=== PATIENT | male | born 1960 | race Caucasian/White ===

== ENCOUNTER 2020-07-18 18:52 | Inpatient (IN) ==
[2020-07-18] MEDS ORDERED: SODIUM CHLORIDE 0.9% 1,000 ML IV STA (19:27)
[2020-07-18 19:53] LABS: Basophils # 0.1 10*3/uL (0.0-0.2); Basophils % 0.4 % (0.0-0.8); Eosinophils % 0.2 % (0.00-10.9); Hematocrit 43.7 VOL% (42.0-52.0); Hemoglobin 14.7 GM/DL (14.0-18.0); Immature Granulocytes Absolute 0.18 #; Lymphocytes # 0.7 10*3/uL (1.4-4.0); Lymphocytes % 3.8 % (21.2-54.2); Mean Corpuscular HGB Conc 33.6 GM/DL (32-36); Mean Corpuscular Volume 93.4 FL (87-102); Monocytes % 3.8 % (1.7-12.7); Neutrophils % 90.8 % (38.7-73.9); Platelet Count 149 T/CUMM (130-400); Red Blood Count 4.68 MC/CUMM (3.8-5.5); Red Cell Distribution Width 14.8 % (9.3-17.3); White Blood Count 18.9 T/CUMM (4-12)
[2020-07-18 20:05] LABS: INR 1.2; PT Patient Result 12.3 SECS (9.8-11.9)
[2020-07-18 20:07] LABS: ABG Base Excess -1.1 MMOL/L (-2.5-2.5); ABG HCO3 21.5 MMOL/L (20-26); ABG Oxygen Saturation 91.7 % (95-100); ABG PCO2 30.4 MM HG (35-48); ABG PH 7.468 (7.35-7.45); ABG PO2 60.1 MM HG (80-95); ABG TCO2 22.5 MMOL/L (23-27)
[2020-07-18 20:20] LABS: Band Neutrophils 18 % (0-10); Lymphocytes 3 % (20-55); Metamyelocytes 1 %; Segmented Neutrophils 72 % (50-85); Total Cells Counted 100
[2020-07-18 20:21] LABS: Hypochromasia 1+; Platelet Estimate Adequate
[2020-07-18 20:24] LABS: Albumin 2.3 G/DL (3.4-5.0); Bilirubin,Total 0.8 MG/DL (0.2-1.0); Osmolality,Calculated 252.6 MOS/KG (273-304); Potassium 4.6 MMOL/L (3.5-5.1); Total Protein 5.9 G/DL (6.4-8.3)
[2020-07-18 20:41] LABS: Ferritin 1866.9 ng/ml (26-388)
[2020-07-18] MEDS ORDERED: MELATONIN 3 MG TABLET PO PRN (21:17)
[2020-07-18] MEDS ORDERED: GLUCAGON 1 MG VIAL IM PRN (21:17)
[2020-07-18] MEDS ORDERED: ACETAMINOPHEN 325 MG TABLET PO PRN (21:17)
[2020-07-18] MEDS ORDERED: DEXTROSE 50% 25 GM/50 ML VIAL IV PRN (21:17)
[2020-07-18] MEDS ORDERED: ONDANSETRON 4 MG/2 ML VIAL IV PRN (21:17)
[2020-07-18] MEDS ORDERED: MAGNESIUM SULF RIDER 2 GM in PREMIX 1 EACH IV ONE (21:20)
[2020-07-18] MEDS ORDERED: methylPREDNISolone SOD SUC 125 MG/2 ML VIAL IV STA (21:21)
[2020-07-18] MEDS: cefTRIAXone 1,000 MG in SYRINGE 1 EACH IV SCH (21:27)
[2020-07-18] MEDS ORDERED: ENOXAPARIN 40 MG/0.4 ML SYRINGE SUBCUT SCH (21:30)
[2020-07-18] MEDS: ASCORBIC ACID 500 MG TABLET PO SCH (22:00)
[2020-07-18] MEDS: FAMOTIDINE 20 MG TABLET PO SCH (22:00)
[2020-07-18] MEDS: AZITHROMYCIN INJ 500 MG in SODIUM CHLORIDE 0.9% 250 ML IV SCH (22:00)
[2020-07-18] MEDS: SODIUM CHLORIDE 0.9% 1,000 ML IV SCH (22:00)
[2020-07-18] MEDS ORDERED: LORazepam 1 MG TABLET PO PRN (23:04)
[2020-07-19] MEDS: ALBUTEROL INHALER 18 GM INH SCH ×4 (00:58→20:22)
[2020-07-19 05:51] LABS: Basophils # 0.1 10*3/uL (0.0-0.2); Basophils % 0.4 % (0.0-0.8); Hematocrit 42.6 VOL% (42.0-52.0); Hemoglobin 14.7 GM/DL (14.0-18.0); Immature Granulocytes % 0.5 %; Immature Granulocytes Absolute 0.07 #; Lymphocytes # 0.4 10*3/uL (1.4-4.0); Mean Corpuscular HGB Conc 34.5 GM/DL (32-36); Mean Corpuscular Volume 92.2 FL (87-102); Mean Platelet Volume 11.3 FL (9.6-12.0); Monocytes % 2.5 % (1.7-12.7); Neutrophils % 93.6 % (38.7-73.9); Platelet Count 132 T/CUMM (130-400); Red Blood Count 4.62 MC/CUMM (3.8-5.5); Red Cell Distribution Width 14.9 % (9.3-17.3); White Blood Count 14.1 T/CUMM (4-12)
[2020-07-19 06:22] LABS: Ferritin 2460.1 ng/ml (26-388)
[2020-07-19 06:43] LABS: Albumin 1.9 G/DL (3.4-5.0); Band Neutrophils 19 % (0-10); Calcium 8.5 MG/DL (8.5-10.1); Lymphocytes 2 % (20-55); Metamyelocytes 2 %; Osmolality,Calculated 256.4 MOS/KG (273-304); Potassium 4.1 MMOL/L (3.5-5.1); Segmented Neutrophils 74 % (50-85); Total Cells Counted 100; Total Protein 6.4 G/DL (6.4-8.3)
[2020-07-19 06:44] LABS: Hypochromasia 1+; Microcytosis 1+
[2020-07-19 06:45] LABS: Platelet Estimate Adequate
[2020-07-19] MEDS ORDERED: DEXAMETHASONE 4 MG/1 ML VIAL IV SCH (09:00)
[2020-07-19] MEDS: ZINC GLUCONATE 50 MG TABLET PO SCH (09:07)
[2020-07-19] MEDS: FOLIC ACID 1 MG TABLET PO SCH (09:07)
[2020-07-19] MEDS: FAMOTIDINE 20 MG TABLET PO SCH ×2 (09:07→20:23)
[2020-07-19] MEDS: CETIRIZINE 10 MG TABLET PO SCH (09:07)
[2020-07-19] MEDS: ASCORBIC ACID 500 MG TABLET PO SCH ×2 (09:07→20:23)
[2020-07-19] MEDS: CHOLECALCIFEROL 1,000 UNIT TABLET PO SCH (09:07)
[2020-07-19] MEDS: MULTIVITAMIN (CENTRUM) TABLET PO SCH (09:08)
[2020-07-19] MEDS: THIAMINE 100 MG TABLET PO SCH (09:08)
[2020-07-19] MEDS: SODIUM CHLORIDE 0.9% 1,000 ML IV SCH (09:09)
[2020-07-19] MEDS ORDERED: methylPREDNISolone SOD SUC 40 MG/1 ML VIAL IV SCH (09:30)
[2020-07-19] MEDS: ENOXAPARIN 40 MG/0.4 ML SYRINGE SUBCUT SCH ×2 (10:07→20:35)
[2020-07-19] MEDS ORDERED: REMDESIVIR 200 MG in SODIUM CHLORIDE 0.9% 210 ML IV ONE (11:00)
[2020-07-19] MEDS ORDERED: LORazepam 2 MG/1 ML VIAL IV ONE ×2 (13:15→14:38)
[2020-07-19] MEDS ORDERED: LORazepam 2 MG/1 ML VIAL ONE (13:16)
[2020-07-19] MEDS ORDERED: BENZONATATE 100 MG CAPSULE PO PRN (13:42)
[2020-07-19] MEDS ORDERED: MORPHINE 4 MG/1 ML VIAL IV PRN (13:59)
[2020-07-19] MEDS ORDERED: FUROSEMIDE 40 MG/4 ML VIAL IV ONE (13:59)
[2020-07-19] MEDS: DEXAMETHASONE 10 MG/1 ML VIAL IV SCH (14:53)
[2020-07-19] MEDS ORDERED: ETOMIDATE 20 MG/10 ML VIAL IV ONE ×2 (15:17→15:51)
[2020-07-19] MEDS ORDERED: SUCCINYLCHOLINE 200 MG/10 ML VIAL ONE (15:18)
[2020-07-19] MEDS ORDERED: SUCCINYLCHOLINE 200 MG/10 ML VIAL IV ONE (15:52)
[2020-07-19] MEDS: chlordiazePOXIDE 10 MG CAPSULE PO SCH ×2 (16:13→20:22)
[2020-07-19 17:34] LABS: ABG Base Excess 0.2 MMOL/L (-2.5-2.5); ABG HCO3 24.4 MMOL/L (20-26); ABG Oxygen Saturation 90.4 % (95-100); ABG PCO2 51.6 MM HG (35-48); ABG TCO2 23.7 MMOL/L (23-27)
[2020-07-19] MEDS: AZITHROMYCIN INJ 500 MG in SODIUM CHLORIDE 0.9% 250 ML IV SCH (20:35)
[2020-07-19] MEDS: cefTRIAXone 1,000 MG in SYRINGE 1 EACH IV SCH (20:36)
[2020-07-20] MEDS: ALBUTEROL INHALER 18 GM INH SCH ×4 (00:40→20:20)
[2020-07-20 04:14] LABS: Amorphous Crystals,Urine Occasional /HPF (Few); RBC,Urine 317 /HPF (0-4); WBC,Urine 4 /HPF (0-6)
[2020-07-20 04:15] LABS: Bilirubin,Urine Negative (Negative); Blood, Urine Large mg/dL (Negative); Glucose,Urine (UA) Negative (Negative); Ketones,Urine Negative (Negative); Nitrite,Urine Negative (Negative); Protein,Urine 100 MG/DL; Urine Appearance Turbid (Clear); Urine Color Amber (Yellow); Urine Urobilinogen 0.2 EU/DL (0.2-1.0)
[2020-07-20 04:23] LABS: ABG Base Excess 1.2 MMOL/L (-2.5-2.5); ABG HCO3 25.5 MMOL/L (20-26); ABG Oxygen Saturation 99.3 % (95-100); ABG PCO2 40.6 MM HG (35-48); ABG PH 7.412 (7.35-7.45); ABG TCO2 21.9 MMOL/L (23-27); Allen Test Positive; Pt O2 Delivery Device Ventilator
[2020-07-20 04:28] LABS: Basophils % 0.2 % (0.0-0.8); Hematocrit 38.4 VOL% (42.0-52.0); Immature Granulocytes % 1.3 %; Immature Granulocytes Absolute 0.17 #; Lymphocytes # 0.5 10*3/uL (1.4-4.0); Lymphocytes % 3.6 % (21.2-54.2); Mean Corpuscular HGB Conc 33.9 GM/DL (32-36); Mean Corpuscular Volume 94.1 FL (87-102); Mean Platelet Volume 11.5 FL (9.6-12.0); Monocytes % 3.4 % (1.7-12.7); Neutrophils % 91.5 % (38.7-73.9); Platelet Count 148 T/CUMM (130-400); Red Blood Count 4.08 MC/CUMM (3.8-5.5); Red Cell Distribution Width 14.8 % (9.3-17.3); White Blood Count 13.2 T/CUMM (4-12)
[2020-07-20 04:59] LABS: Band Neutrophils 10 % (0-10); Lymphocytes 2 % (20-55); Microcytosis 1+; Platelet Estimate Adequate; Segmented Neutrophils 85 % (50-85); Total Cells Counted 100
[2020-07-20 05:00] LABS: Hypochromasia 1+
[2020-07-20 05:02] LABS: Calcium 8.2 MG/DL (8.5-10.1); Ferritin 4286.9 ng/ml (26-388); Osmolality,Calculated 261.2 MOS/KG (273-304); Potassium 3.9 MMOL/L (3.5-5.1)
[2020-07-20] MEDS ORDERED: SUCCINYLCHOLINE 200 MG/10 ML VIAL ONE (07:20)
[2020-07-20] MEDS ORDERED: SUCCINYLCHOLINE 200 MG/10 ML VIAL IV ONE (07:21)
[2020-07-20] MEDS ORDERED: MIDAZOLAM 100 MG in SODIUM CHLORIDE 0.9% 80 ML IV PRN (07:30)
[2020-07-20] MEDS: fentaNYL INJ 1,250 MCG in SODIUM CHLORIDE 0.9% 225 ML IV PRN ×3 (08:45→21:25)
[2020-07-20] MEDS: CETIRIZINE 10 MG TABLET PO SCH (09:04)
[2020-07-20] MEDS: CHOLECALCIFEROL 1,000 UNIT TABLET PO SCH (09:04)
[2020-07-20] MEDS: chlordiazePOXIDE 10 MG CAPSULE PO SCH (09:04)
[2020-07-20] MEDS: THIAMINE 100 MG TABLET PO SCH (09:05)
[2020-07-20] MEDS: FAMOTIDINE 20 MG TABLET PO SCH ×2 (09:05→21:09)
[2020-07-20] MEDS: MULTIVITAMIN (CENTRUM) TABLET PO SCH (09:05)
[2020-07-20] MEDS: ASCORBIC ACID 500 MG TABLET PO SCH ×2 (09:05→21:10)
[2020-07-20] MEDS: ZINC GLUCONATE 50 MG TABLET PO SCH (09:05)
[2020-07-20] MEDS: FOLIC ACID 1 MG TABLET PO SCH (09:05)
[2020-07-20] MEDS: LEVOTHYROXINE 150 MCG TABLET PO SCH (09:05)
[2020-07-20] MEDS: DEXAMETHASONE 10 MG/1 ML VIAL IV SCH (09:06)
[2020-07-20] MEDS: amLODIPine 5 MG TABLET PO SCH (09:06)
[2020-07-20] MEDS: ENOXAPARIN 40 MG/0.4 ML SYRINGE SUBCUT SCH (09:06)
[2020-07-20] MEDS: REMDESIVIR 100 MG in SODIUM CHLORIDE 0.9% 100 ML IV SCH (10:13)
[2020-07-20] MEDS: PIPERACILLIN/TAZOBACTAM 3,375 MG in SODIUM CHLORIDE 0.9% 100 ML IV SCH ×2 (11:13→17:27)
[2020-07-20] MEDS: INSULIN REGULAR 100 UNIT/ML SUBCUT SCH ×2 (11:45→18:03)
[2020-07-20] MEDS: ENOXAPARIN 80 MG/0.8 ML SYRINGE SUBCUT SCH (21:09)
[2020-07-20] MEDS: AZITHROMYCIN 250 MG TABLET PO SCH (21:10)
[2020-07-21] MEDS: PIPERACILLIN/TAZOBACTAM 3,375 MG in SODIUM CHLORIDE 0.9% 100 ML IV SCH ×4 (00:50→23:43)
[2020-07-21] MEDS: fentaNYL INJ 1,250 MCG in SODIUM CHLORIDE 0.9% 225 ML IV PRN ×5 (00:52→23:42)
[2020-07-21] MEDS: ALBUTEROL INHALER 18 GM INH SCH ×4 (01:26→20:20)
[2020-07-21] MEDS: INSULIN REGULAR 100 UNIT/ML SUBCUT SCH ×4 (01:26→18:33)
[2020-07-21 04:21] LABS: Allen Test Positive; Pt O2 Delivery Device Ventilator
[2020-07-21 04:23] LABS: ABG Base Excess -2.1 MMOL/L (-2.5-2.5); ABG Oxygen Saturation 98.8 % (95-100); ABG PCO2 40.7 MM HG (35-48); ABG PO2 176.1 MM HG (80-95); ABG TCO2 24.2 MMOL/L (23-27)
[2020-07-21 04:35] LABS: Basophils % 0.2 % (0.0-0.8); Hematocrit 35.4 VOL% (42.0-52.0); Hemoglobin 12.5 GM/DL (14.0-18.0); Immature Granulocytes % 1.2 %; Immature Granulocytes Absolute 0.13 #; Lymphocytes # 0.6 10*3/uL (1.4-4.0); Lymphocytes % 5.2 % (21.2-54.2); Mean Corpuscular HGB Conc 35.3 GM/DL (32-36); Mean Corpuscular Volume 94.7 FL (87-102); Mean Platelet Volume 11.8 FL (9.6-12.0); Monocytes % 5.9 % (1.7-12.7); Neutrophils % 87.5 % (38.7-73.9); Platelet Count 154 T/CUMM (130-400); Red Blood Count 3.74 MC/CUMM (3.8-5.5); Red Cell Distribution Width 15.1 % (9.3-17.3); White Blood Count 11.2 T/CUMM (4-12)
[2020-07-21 06:04] LABS: Albumin 1.7 G/DL (3.4-5.0); Bilirubin,Total 0.9 MG/DL (0.2-1.0); Calcium 7.5 MG/DL (8.5-10.1); Osmolality,Calculated 284.5 MOS/KG (273-304); Potassium 4.1 MMOL/L (3.5-5.1)
[2020-07-21] MEDS ORDERED: SODIUM CHLORIDE 0.9% 500 ML IV ONE ×2 (06:37→08:30)
[2020-07-21] MEDS ORDERED: NOREPINEPHRINE 8 MG in SODIUM CHLORIDE 0.9% 242 ML IV PRN (06:37)
[2020-07-21 07:55] LABS: Band Neutrophils 11 % (0-10); Lymphocytes 3 % (20-55); Metamyelocytes 2 %; Segmented Neutrophils 84 % (50-85); Total Cells Counted 100
[2020-07-21 07:56] LABS: Hypochromasia Slight; Microcytosis 1+; Tear Drop Cells Few
[2020-07-21 07:57] LABS: Platelet Estimate Adequate
[2020-07-21] MEDS: ENOXAPARIN 80 MG/0.8 ML SYRINGE SUBCUT SCH ×2 (08:00→20:28)
[2020-07-21] MEDS: DEXAMETHASONE 10 MG/1 ML VIAL IV SCH (08:00)
[2020-07-21] MEDS: THIAMINE 100 MG TABLET PO SCH (08:01)
[2020-07-21] MEDS: CETIRIZINE 10 MG TABLET PO SCH (08:01)
[2020-07-21] MEDS: ZINC GLUCONATE 50 MG TABLET PO SCH (08:01)
[2020-07-21] MEDS: FAMOTIDINE 20 MG TABLET PO SCH ×2 (08:01→20:28)
[2020-07-21] MEDS: ASCORBIC ACID 500 MG TABLET PO SCH ×2 (08:01→20:28)
[2020-07-21] MEDS: CHOLECALCIFEROL 1,000 UNIT TABLET PO SCH (08:01)
[2020-07-21] MEDS: FOLIC ACID 1 MG TABLET PO SCH (08:01)
[2020-07-21] MEDS: MULTIVITAMIN (CENTRUM) TABLET PO SCH (08:01)
[2020-07-21] MEDS: LEVOTHYROXINE 150 MCG TABLET PO SCH (08:01)
[2020-07-21] MEDS: REMDESIVIR 100 MG in SODIUM CHLORIDE 0.9% 100 ML IV SCH (09:56)
[2020-07-21] MEDS: POLYETHYLENE GLYCOL POWDER 17 GM PACK PO SCH (10:04)
[2020-07-21] MEDS: AZITHROMYCIN 250 MG TABLET PO SCH (20:28)
[2020-07-22] MEDS: INSULIN REGULAR 100 UNIT/ML SUBCUT SCH ×4 (00:27→18:28)
[2020-07-22] MEDS: ALBUTEROL INHALER 18 GM INH SCH ×4 (02:52→20:30)
[2020-07-22 03:10] LABS: ABG Base Excess -2.7 MMOL/L (-2.5-2.5); ABG HCO3 22.8 MMOL/L (20-26); ABG Oxygen Saturation 97.8 % (95-100); ABG PCO2 42.1 MM HG (35-48); ABG PH 7.351 (7.35-7.45); ABG PO2 114.1 MM HG (80-95); ABG TCO2 24.1 MMOL/L (23-27); Allen Test Positive; Pt O2 Delivery Device Ventilator
[2020-07-22] MEDS: fentaNYL INJ 1,250 MCG in SODIUM CHLORIDE 0.9% 225 ML IV PRN ×6 (03:31→23:30)
[2020-07-22 04:23] LABS: Basophils % 0.2 % (0.0-0.8); Eosinophils # 0.1 10*3/uL (0.0-0.87); Eosinophils % 0.5 % (0.00-10.9); Hematocrit 35.8 VOL% (42.0-52.0); Hemoglobin 12.4 GM/DL (14.0-18.0); Immature Granulocytes % 1.8 %; Immature Granulocytes Absolute 0.18 #; Lymphocytes % 9.8 % (21.2-54.2); Mean Corpuscular HGB Conc 34.6 GM/DL (32-36); Monocytes % 6.4 % (1.7-12.7); Neutrophils % 81.3 % (38.7-73.9); Platelet Count 179 T/CUMM (130-400); Red Blood Count 3.77 MC/CUMM (3.8-5.5); Red Cell Distribution Width 15.5 % (9.3-17.3); White Blood Count 10.3 T/CUMM (4-12)
[2020-07-22 04:40] LABS: Calcium 7.8 MG/DL (8.5-10.1); Potassium 3.7 MMOL/L (3.5-5.1)
[2020-07-22 04:46] LABS: Hypochromasia Slight
[2020-07-22 04:47] LABS: Microcytosis Slight; Tear Drop Cells Slight
[2020-07-22] MEDS: DEXAMETHASONE 10 MG/1 ML VIAL IV SCH (08:16)
[2020-07-22] MEDS: ENOXAPARIN 80 MG/0.8 ML SYRINGE SUBCUT SCH ×2 (08:18→21:11)
[2020-07-22] MEDS: FOLIC ACID 1 MG TABLET PO SCH (08:18)
[2020-07-22] MEDS: MULTIVITAMIN (CENTRUM) TABLET PO SCH (08:18)
[2020-07-22] MEDS: LEVOTHYROXINE 150 MCG TABLET PO SCH (08:18)
[2020-07-22] MEDS: CHOLECALCIFEROL 1,000 UNIT TABLET PO SCH (08:18)
[2020-07-22] MEDS: ASCORBIC ACID 500 MG TABLET PO SCH ×2 (08:18→21:12)
[2020-07-22] MEDS: POLYETHYLENE GLYCOL POWDER 17 GM PACK PO SCH (08:18)
[2020-07-22] MEDS: THIAMINE 100 MG TABLET PO SCH (08:19)
[2020-07-22] MEDS: ZINC GLUCONATE 50 MG TABLET PO SCH (08:19)
[2020-07-22] MEDS: CETIRIZINE 10 MG TABLET PO SCH (08:19)
[2020-07-22] MEDS: FAMOTIDINE 20 MG TABLET PO SCH ×2 (08:19→21:12)
[2020-07-22] MEDS: PIPERACILLIN/TAZOBACTAM 3,375 MG in SODIUM CHLORIDE 0.9% 100 ML IV SCH ×2 (08:28→16:25)
[2020-07-22] MEDS: REMDESIVIR 100 MG in SODIUM CHLORIDE 0.9% 100 ML IV SCH (10:42)
[2020-07-22] MEDS: AZITHROMYCIN 250 MG TABLET PO SCH (21:12)
[2020-07-23] MEDS: INSULIN REGULAR 100 UNIT/ML SUBCUT SCH ×5 (00:08→23:03)
[2020-07-23] MEDS: PIPERACILLIN/TAZOBACTAM 3,375 MG in SODIUM CHLORIDE 0.9% 100 ML IV SCH ×4 (01:25→23:03)
[2020-07-23] MEDS: ALBUTEROL INHALER 18 GM INH SCH ×4 (03:00→18:58)
[2020-07-23] MEDS: fentaNYL INJ 1,250 MCG in SODIUM CHLORIDE 0.9% 225 ML IV PRN ×4 (04:05→15:40)
[2020-07-23 04:13] LABS: ABG Base Excess -1.9 MMOL/L (-2.5-2.5); ABG HCO3 22.8 MMOL/L (20-26); ABG Oxygen Saturation 98.9 % (95-100); ABG PCO2 39.5 MM HG (35-48); ABG PH 7.374 (7.35-7.45); ABG TCO2 20.5 MMOL/L (23-27)
[2020-07-23 06:35] LABS: Basophils % 0.3 % (0.0-0.8); Eosinophils # 0.3 10*3/uL (0.0-0.87); Eosinophils % 2.9 % (0.00-10.9); Hematocrit 34.7 VOL% (42.0-52.0); Hemoglobin 11.9 GM/DL (14.0-18.0); Immature Granulocytes % 4.8 %; Immature Granulocytes Absolute 0.56 #; Lymphocytes # 1.5 10*3/uL (1.4-4.0); Lymphocytes % 12.4 % (21.2-54.2); Mean Corpuscular HGB Conc 34.3 GM/DL (32-36); Mean Corpuscular Volume 94.6 FL (87-102); Mean Platelet Volume 11.8 FL (9.6-12.0); Monocytes % 6.4 % (1.7-12.7); Neutrophils % 73.2 % (38.7-73.9); Platelet Count 193 T/CUMM (130-400); Red Blood Count 3.67 MC/CUMM (3.8-5.5); Red Cell Distribution Width 15.9 % (9.3-17.3); White Blood Count 11.7 T/CUMM (4-12)
[2020-07-23 06:53] LABS: Calcium 7.7 MG/DL (8.5-10.1); Osmolality,Calculated 299.4 MOS/KG (273-304); Potassium 3.8 MMOL/L (3.5-5.1)
[2020-07-23 08:09] LABS: Band Neutrophils 8 % (0-10); Eosinophils 6 % (0-10); Lymphocytes 7 % (20-55); Metamyelocytes 2 %; Segmented Neutrophils 72 % (50-85); Total Cells Counted 100
[2020-07-23 08:10] LABS: Hypochromasia 1+
[2020-07-23 08:11] LABS: Microcytosis 1+
[2020-07-23] MEDS: ZINC GLUCONATE 50 MG TABLET PO SCH (09:41)
[2020-07-23] MEDS: LEVOTHYROXINE 150 MCG TABLET PO SCH (09:42)
[2020-07-23] MEDS: CHOLECALCIFEROL 1,000 UNIT TABLET PO SCH (09:42)
[2020-07-23] MEDS: THIAMINE 100 MG TABLET PO SCH (09:42)
[2020-07-23] MEDS: FOLIC ACID 1 MG TABLET PO SCH (09:42)
[2020-07-23] MEDS: MULTIVITAMIN (CENTRUM) TABLET PO SCH (09:43)
[2020-07-23] MEDS: CETIRIZINE 10 MG TABLET PO SCH (09:43)
[2020-07-23] MEDS: ASCORBIC ACID 500 MG TABLET PO SCH ×2 (09:43→22:30)
[2020-07-23] MEDS: DEXAMETHASONE 10 MG/1 ML VIAL IV SCH (09:44)
[2020-07-23] MEDS: POLYETHYLENE GLYCOL POWDER 17 GM PACK PO SCH (09:44)
[2020-07-23] MEDS: ENOXAPARIN 80 MG/0.8 ML SYRINGE SUBCUT SCH ×2 (09:44→22:30)
[2020-07-23] MEDS: FAMOTIDINE 20 MG TABLET PO SCH ×2 (09:45→22:30)
[2020-07-23] MEDS: REMDESIVIR 100 MG in SODIUM CHLORIDE 0.9% 100 ML IV SCH (09:45)
[2020-07-23] MEDS: fentaNYL INJ 2,500 MCG in SODIUM CHLORIDE 0.9% 450 ML IV PRN (19:38)
[2020-07-24] MEDS: ALBUTEROL INHALER 18 GM INH SCH ×4 (01:51→18:30)
[2020-07-24] MEDS: fentaNYL INJ 2,500 MCG in SODIUM CHLORIDE 0.9% 450 ML IV PRN ×3 (03:55→19:00)
[2020-07-24 05:40] LABS: Basophils # 0.1 10*3/uL (0.0-0.2); Basophils % 0.4 % (0.0-0.8); Eosinophils # 0.4 10*3/uL (0.0-0.87); Eosinophils % 3.1 % (0.00-10.9); Hematocrit 36.8 VOL% (42.0-52.0); Hemoglobin 12.4 GM/DL (14.0-18.0); Immature Granulocytes % 7.4 %; Immature Granulocytes Absolute 0.99 #; Lymphocytes # 1.6 10*3/uL (1.4-4.0); Lymphocytes % 11.9 % (21.2-54.2); Mean Corpuscular HGB Conc 33.7 GM/DL (32-36); Mean Corpuscular Volume 96.1 FL (87-102); Mean Platelet Volume 11.6 FL (9.6-12.0); Monocytes % 6.4 % (1.7-12.7); Neutrophils % 70.8 % (38.7-73.9); Platelet Count 220 T/CUMM (130-400); Red Blood Count 3.83 MC/CUMM (3.8-5.5); Red Cell Distribution Width 16.2 % (9.3-17.3); White Blood Count 13.4 T/CUMM (4-12)
[2020-07-24 05:54] LABS: ABG Base Excess -3.8 MMOL/L (-2.5-2.5); ABG HCO3 21.3 MMOL/L (20-26); ABG Oxygen Saturation 97.6 % (95-100); ABG PH 7.309 (7.35-7.45); ABG TCO2 20.3 MMOL/L (23-27); Allen Test Positive; Pt O2 Delivery Device Ventilator
[2020-07-24 06:09] LABS: Band Neutrophils 3 % (0-10); Eosinophils 3 % (0-10); Lymphocytes 13 % (20-55); Myelocytes 1 %; Segmented Neutrophils 74 % (50-85); Total Cells Counted 100
[2020-07-24 06:10] LABS: Atypical Lymphocytes Few; Platelet Estimate Normal
[2020-07-24 06:11] LABS: Ovalocytes 2+; Tear Drop Cells 2+
[2020-07-24 06:14] LABS: Calcium 8.2 MG/DL (8.5-10.1); Osmolality,Calculated 300.4 MOS/KG (273-304)
[2020-07-24] MEDS: INSULIN REGULAR 100 UNIT/ML SUBCUT SCH ×4 (06:18→17:20)
[2020-07-24 06:31] LABS: Ferritin 2832.3 ng/ml (26-388)
[2020-07-24] MEDS: PIPERACILLIN/TAZOBACTAM 3,375 MG in SODIUM CHLORIDE 0.9% 100 ML IV SCH ×2 (09:02→16:18)
[2020-07-24] MEDS: ASCORBIC ACID 500 MG TABLET PO SCH ×2 (09:03→20:21)
[2020-07-24] MEDS: CHOLECALCIFEROL 1,000 UNIT TABLET PO SCH (09:03)
[2020-07-24] MEDS: ZINC GLUCONATE 50 MG TABLET PO SCH (09:04)
[2020-07-24] MEDS: MULTIVITAMIN (CENTRUM) TABLET PO SCH (09:04)
[2020-07-24] MEDS: DEXAMETHASONE 10 MG/1 ML VIAL IV SCH (09:04)
[2020-07-24] MEDS: LEVOTHYROXINE 150 MCG TABLET PO SCH (09:04)
[2020-07-24] MEDS: FAMOTIDINE 20 MG TABLET PO SCH ×2 (09:04→20:22)
[2020-07-24] MEDS: ENOXAPARIN 80 MG/0.8 ML SYRINGE SUBCUT SCH ×2 (09:05→20:21)
[2020-07-24] MEDS: THIAMINE 100 MG TABLET PO SCH (09:05)
[2020-07-24] MEDS: CETIRIZINE 10 MG TABLET PO SCH (09:05)
[2020-07-24] MEDS: FOLIC ACID 1 MG TABLET PO SCH (09:05)
[2020-07-24] MEDS: POLYETHYLENE GLYCOL POWDER 17 GM PACK PO SCH (09:05)
[2020-07-24] MEDS: FUROSEMIDE 20 MG/2 ML VIAL IV SCH (16:17)
[2020-07-25] MEDS: INSULIN REGULAR 100 UNIT/ML SUBCUT SCH ×4 (01:09→18:12)
[2020-07-25] MEDS: PIPERACILLIN/TAZOBACTAM 3,375 MG in SODIUM CHLORIDE 0.9% 100 ML IV SCH ×3 (01:19→15:53)
[2020-07-25] MEDS: ALBUTEROL INHALER 18 GM INH SCH ×4 (01:46→18:12)
[2020-07-25] MEDS: fentaNYL INJ 2,500 MCG in SODIUM CHLORIDE 0.9% 450 ML IV PRN ×3 (02:03→20:11)
[2020-07-25 04:17] LABS: ABG Base Excess -2.9 MMOL/L (-2.5-2.5); ABG HCO3 20.4 MMOL/L (20-26); ABG Oxygen Saturation 98.3 % (95-100); ABG PCO2 31.3 MM HG (35-48); ABG PH 7.433 (7.35-7.45); ABG PO2 114.4 MM HG (80-95); ABG TCO2 21.4 MMOL/L (23-27); Allen Test Positive; Pt O2 Delivery Device Ventilator
[2020-07-25 04:52] LABS: Basophils % 0.2 % (0.0-0.8); Eosinophils # 0.4 10*3/uL (0.0-0.87); Hematocrit 34.9 VOL% (42.0-52.0); Hemoglobin 11.4 GM/DL (14.0-18.0); Immature Granulocytes % 7.1 %; Immature Granulocytes Absolute 1.05 #; Lymphocytes # 1.7 10*3/uL (1.4-4.0); Lymphocytes % 11.6 % (21.2-54.2); Mean Corpuscular HGB Conc 32.7 GM/DL (32-36); Mean Corpuscular Volume 97.5 FL (87-102); Mean Platelet Volume 11.6 FL (9.6-12.0); Monocytes % 6.3 % (1.7-12.7); Neutrophils % 71.8 % (38.7-73.9); Platelet Count 276 T/CUMM (130-400); Red Blood Count 3.58 MC/CUMM (3.8-5.5); Red Cell Distribution Width 16.2 % (9.3-17.3); White Blood Count 14.9 T/CUMM (4-12)
[2020-07-25 05:07] LABS: Albumin 1.6 G/DL (3.4-5.0); Bilirubin,Total 0.8 MG/DL (0.2-1.0); Calcium 8.5 MG/DL (8.5-10.1); Osmolality,Calculated 307.6 MOS/KG (273-304); Potassium 3.8 MMOL/L (3.5-5.1)
[2020-07-25 06:25] LABS: Anisocytosis 1+; Band Neutrophils 17 % (0-10); Eosinophils 7 % (0-10); Lymphocytes 7 % (20-55); Metamyelocytes 3 %; Myelocytes 2 %; Platelet Estimate Normal; Segmented Neutrophils 58 % (50-85); Smudge Cells Few; Total Cells Counted 100
[2020-07-25 06:26] LABS: Macrocytosis Slight; Poikilocytosis Slight; Spherocytes Few; Tear Drop Cells Few
[2020-07-25] MEDS: DEXAMETHASONE 10 MG/1 ML VIAL IV SCH (08:05)
[2020-07-25] MEDS: FUROSEMIDE 20 MG/2 ML VIAL IV SCH ×2 (08:08→15:50)
[2020-07-25] MEDS: ASCORBIC ACID 500 MG TABLET PO SCH ×2 (08:10→20:12)
[2020-07-25] MEDS: ENOXAPARIN 80 MG/0.8 ML SYRINGE SUBCUT SCH ×2 (08:10→20:11)
[2020-07-25] MEDS: THIAMINE 100 MG TABLET PO SCH (08:10)
[2020-07-25] MEDS: CHOLECALCIFEROL 1,000 UNIT TABLET PO SCH (08:11)
[2020-07-25] MEDS: LEVOTHYROXINE 150 MCG TABLET PO SCH (08:11)
[2020-07-25] MEDS: FAMOTIDINE 20 MG TABLET PO SCH ×2 (08:11→20:12)
[2020-07-25] MEDS: POLYETHYLENE GLYCOL POWDER 17 GM PACK PO SCH (08:11)
[2020-07-25] MEDS: ZINC GLUCONATE 50 MG TABLET PO SCH (08:11)
[2020-07-25] MEDS: CETIRIZINE 10 MG TABLET PO SCH (08:11)
[2020-07-25] MEDS: MULTIVITAMIN (CENTRUM) TABLET PO SCH (08:11)
[2020-07-25] MEDS: FOLIC ACID 1 MG TABLET PO SCH (08:11)
[2020-07-26] MEDS: INSULIN REGULAR 100 UNIT/ML SUBCUT SCH ×4 (01:01→18:10)
[2020-07-26] MEDS: ALBUTEROL INHALER 18 GM INH SCH ×4 (01:01→19:29)
[2020-07-26] MEDS: PIPERACILLIN/TAZOBACTAM 3,375 MG in SODIUM CHLORIDE 0.9% 100 ML IV SCH ×2 (01:50→08:07)
[2020-07-26] MEDS: fentaNYL INJ 2,500 MCG in SODIUM CHLORIDE 0.9% 450 ML IV PRN ×2 (03:06→11:19)
[2020-07-26 04:44] LABS: Allen Test Positive; Pt O2 Delivery Device Ventilator
[2020-07-26 04:58] LABS: ABG Base Excess -1.6 MMOL/L (-2.5-2.5); ABG HCO3 23.1 MMOL/L (20-26); ABG Oxygen Saturation 97.7 % (95-100); ABG PCO2 31.4 MM HG (35-48); ABG PH 7.445 (7.35-7.45); ABG TCO2 18.8 MMOL/L (23-27)
[2020-07-26 06:25] LABS: Basophils % 0.1 % (0.0-0.8); Eosinophils # 0.4 10*3/uL (0.0-0.87); Eosinophils % 2.6 % (0.00-10.9); Hematocrit 34.2 VOL% (42.0-52.0); Hemoglobin 11.2 GM/DL (14.0-18.0); Immature Granulocytes % 6.8 %; Immature Granulocytes Absolute 1.14 #; Lymphocytes # 1.8 10*3/uL (1.4-4.0); Lymphocytes % 10.6 % (21.2-54.2); Mean Corpuscular HGB Conc 32.7 GM/DL (32-36); Mean Corpuscular Volume 96.9 FL (87-102); Mean Platelet Volume 11.3 FL (9.6-12.0); Monocytes % 5.9 % (1.7-12.7); Platelet Count 312 T/CUMM (130-400); Red Blood Count 3.53 MC/CUMM (3.8-5.5); Red Cell Distribution Width 15.9 % (9.3-17.3); White Blood Count 16.7 T/CUMM (4-12)
[2020-07-26 07:01] LABS: Calcium 8.3 MG/DL (8.5-10.1); Osmolality,Calculated 304.8 MOS/KG (273-304); Potassium 3.5 MMOL/L (3.5-5.1)
[2020-07-26 07:03] LABS: Band Neutrophils 1 % (0-10); Eosinophils 2 % (0-10); Lymphocytes 8 % (20-55); Platelet Estimate Adequate; Segmented Neutrophils 85 % (50-85); Total Cells Counted 100
[2020-07-26] MEDS: ENOXAPARIN 80 MG/0.8 ML SYRINGE SUBCUT SCH ×2 (08:08→20:32)
[2020-07-26] MEDS: POLYETHYLENE GLYCOL POWDER 17 GM PACK PO SCH (08:08)
[2020-07-26] MEDS: ZINC GLUCONATE 50 MG TABLET PO SCH (08:09)
[2020-07-26] MEDS: LEVOTHYROXINE 150 MCG TABLET PO SCH (08:09)
[2020-07-26] MEDS: FUROSEMIDE 20 MG/2 ML VIAL IV SCH ×2 (08:09→17:10)
[2020-07-26] MEDS: MULTIVITAMIN (CENTRUM) TABLET PO SCH (08:09)
[2020-07-26] MEDS: CHOLECALCIFEROL 1,000 UNIT TABLET PO SCH (08:09)
[2020-07-26] MEDS: DEXAMETHASONE 10 MG/1 ML VIAL IV SCH (08:09)
[2020-07-26] MEDS: FOLIC ACID 1 MG TABLET PO SCH (08:09)
[2020-07-26] MEDS: ASCORBIC ACID 500 MG TABLET PO SCH ×2 (08:10→20:32)
[2020-07-26] MEDS: CETIRIZINE 10 MG TABLET PO SCH (08:10)
[2020-07-26] MEDS: THIAMINE 100 MG TABLET PO SCH (08:10)
[2020-07-26] MEDS: FAMOTIDINE 20 MG TABLET PO SCH ×2 (08:10→20:32)
[2020-07-26] MEDS: DESITIN 4OZ/NYSTATIN 15 GRAM MIXTURE PASTE TOP SCH ×2 (11:52→20:32)
[2020-07-26] MEDS: LEVOFLOXACIN INJ 750 MG in PREMIX 1 EACH IV SCH (11:57)
[2020-07-27] MEDS: ALBUTEROL INHALER 18 GM INH SCH ×4 (00:52→20:02)
[2020-07-27] MEDS: INSULIN REGULAR 100 UNIT/ML SUBCUT SCH ×4 (00:52→17:47)
[2020-07-27] MEDS: fentaNYL INJ 2,500 MCG in SODIUM CHLORIDE 0.9% 450 ML IV PRN ×4 (02:45→22:23)
[2020-07-27 04:48] LABS: ABG Base Excess -1.1 MMOL/L (-2.5-2.5); ABG HCO3 23.5 MMOL/L (20-26); ABG Oxygen Saturation 98.1 % (95-100); ABG PCO2 30.6 MM HG (35-48); ABG PH 7.461 (7.35-7.45); ABG TCO2 19.4 MMOL/L (23-27)
[2020-07-27 05:05] LABS: Basophils % 0.2 % (0.0-0.8); Eosinophils # 0.3 10*3/uL (0.0-0.87); Eosinophils % 1.9 % (0.00-10.9); Hematocrit 34.1 VOL% (42.0-52.0); Hemoglobin 11.1 GM/DL (14.0-18.0); Immature Granulocytes % 4.8 %; Immature Granulocytes Absolute 0.85 #; Lymphocytes # 1.7 10*3/uL (1.4-4.0); Lymphocytes % 9.6 % (21.2-54.2); Mean Corpuscular HGB Conc 32.6 GM/DL (32-36); Mean Corpuscular Volume 96.6 FL (87-102); Mean Platelet Volume 11.7 FL (9.6-12.0); Monocytes % 5.7 % (1.7-12.7); Neutrophils % 77.8 % (38.7-73.9); Platelet Count 287 T/CUMM (130-400); Red Blood Count 3.53 MC/CUMM (3.8-5.5); Red Cell Distribution Width 15.9 % (9.3-17.3); White Blood Count 17.9 T/CUMM (4-12)
[2020-07-27 05:33] LABS: Band Neutrophils 5 % (0-10); Eosinophils 1 % (0-10); Lymphocytes 6 % (20-55); Myelocytes 1 %; Segmented Neutrophils 85 % (50-85); Total Cells Counted 100
[2020-07-27 05:35] LABS: Hypochromasia 1+
[2020-07-27 05:36] LABS: Microcytosis 1+
[2020-07-27 06:25] LABS: Calcium 8.2 MG/DL (8.5-10.1); Osmolality,Calculated 294.3 MOS/KG (273-304); Potassium 3.3 MMOL/L (3.5-5.1)
[2020-07-27] MEDS ORDERED: MAGNESIUM SULF RIDER 2 GM in PREMIX 1 EACH IV ONE (08:48)
[2020-07-27] MEDS: POLYETHYLENE GLYCOL POWDER 17 GM PACK PO SCH (09:48)
[2020-07-27] MEDS: ENOXAPARIN 80 MG/0.8 ML SYRINGE SUBCUT SCH ×2 (09:49→19:59)
[2020-07-27] MEDS: LEVOTHYROXINE 150 MCG TABLET PO SCH (09:49)
[2020-07-27] MEDS: FUROSEMIDE 20 MG/2 ML VIAL IV SCH ×2 (09:49→17:00)
[2020-07-27] MEDS: DEXAMETHASONE 10 MG/1 ML VIAL IV SCH (09:49)
[2020-07-27] MEDS: THIAMINE 100 MG TABLET PO SCH (09:50)
[2020-07-27] MEDS: MULTIVITAMIN (CENTRUM) TABLET PO SCH (09:50)
[2020-07-27] MEDS: CHOLECALCIFEROL 1,000 UNIT TABLET PO SCH (09:50)
[2020-07-27] MEDS: ZINC GLUCONATE 50 MG TABLET PO SCH (09:50)
[2020-07-27] MEDS: CETIRIZINE 10 MG TABLET PO SCH (09:50)
[2020-07-27] MEDS: FOLIC ACID 1 MG TABLET PO SCH (09:50)
[2020-07-27] MEDS: ASCORBIC ACID 500 MG TABLET PO SCH ×2 (09:50→19:59)
[2020-07-27] MEDS: FAMOTIDINE 20 MG TABLET PO SCH ×2 (09:50→19:59)
[2020-07-27] MEDS: DESITIN 4OZ/NYSTATIN 15 GRAM MIXTURE PASTE TOP SCH ×2 (10:24→19:59)
[2020-07-27] MEDS: POTASSIUM CHLORIDE 20 MEQ/15 ML UDCUP PER TUBE PRN ×3 (10:55→18:00)
[2020-07-27] MEDS: LEVOFLOXACIN INJ 750 MG in PREMIX 1 EACH IV SCH (13:30)
[2020-07-28] MEDS: INSULIN REGULAR 100 UNIT/ML SUBCUT SCH ×4 (00:53→17:43)
[2020-07-28] MEDS: ALBUTEROL INHALER 18 GM INH SCH ×4 (02:12→18:21)
[2020-07-28 04:03] LABS: ABG Base Excess -1.7 MMOL/L (-2.5-2.5); ABG HCO3 22.5 MMOL/L (20-26); ABG Oxygen Saturation 97.5 % (95-100); ABG PH 7.413 (7.35-7.45); ABG PO2 104.3 MM HG (80-95); ABG TCO2 23.6 MMOL/L (23-27)
[2020-07-28 04:48] LABS: Basophils % 0.2 % (0.0-0.8); Eosinophils # 0.3 10*3/uL (0.0-0.87); Eosinophils % 1.6 % (0.00-10.9); Hematocrit 35.6 VOL% (42.0-52.0); Hemoglobin 11.4 GM/DL (14.0-18.0); Immature Granulocytes % 2.9 %; Immature Granulocytes Absolute 0.45 #; Lymphocytes # 1.7 10*3/uL (1.4-4.0); Mean Corpuscular Volume 99.7 FL (87-102); Mean Platelet Volume 12.3 FL (9.6-12.0); Monocytes % 6.2 % (1.7-12.7); Neutrophils % 78.1 % (38.7-73.9); Platelet Count 213 T/CUMM (130-400); Red Blood Count 3.57 MC/CUMM (3.8-5.5); Red Cell Distribution Width 15.7 % (9.3-17.3); White Blood Count 15.8 T/CUMM (4-12)
[2020-07-28 05:09] LABS: Calcium 8.4 MG/DL (8.5-10.1); Osmolality,Calculated 285.5 MOS/KG (273-304); Potassium 3.7 MMOL/L (3.5-5.1)
[2020-07-28] MEDS: fentaNYL INJ 2,500 MCG in SODIUM CHLORIDE 0.9% 450 ML IV PRN ×3 (06:30→19:20)
[2020-07-28] MEDS: DEXAMETHASONE 10 MG/1 ML VIAL IV SCH (08:50)
[2020-07-28] MEDS: POLYETHYLENE GLYCOL POWDER 17 GM PACK PO SCH (08:51)
[2020-07-28] MEDS: ENOXAPARIN 80 MG/0.8 ML SYRINGE SUBCUT SCH ×2 (08:52→20:04)
[2020-07-28] MEDS: ASCORBIC ACID 500 MG TABLET PO SCH ×2 (08:54→20:05)
[2020-07-28] MEDS: MULTIVITAMIN (CENTRUM) TABLET PO SCH (08:54)
[2020-07-28] MEDS: CHOLECALCIFEROL 1,000 UNIT TABLET PO SCH (08:54)
[2020-07-28] MEDS: FAMOTIDINE 20 MG TABLET PO SCH ×2 (08:55→20:05)
[2020-07-28] MEDS: CETIRIZINE 10 MG TABLET PO SCH (08:55)
[2020-07-28] MEDS: THIAMINE 100 MG TABLET PO SCH (08:55)
[2020-07-28] MEDS: DESITIN 4OZ/NYSTATIN 15 GRAM MIXTURE PASTE TOP SCH ×2 (08:55→21:30)
[2020-07-28] MEDS: FOLIC ACID 1 MG TABLET PO SCH (08:55)
[2020-07-28] MEDS: LEVOTHYROXINE 150 MCG TABLET PO SCH (08:55)
[2020-07-28] MEDS: ZINC GLUCONATE 50 MG TABLET PO SCH (08:55)
[2020-07-28] MEDS: FUROSEMIDE 20 MG/2 ML VIAL IV SCH ×2 (08:56→16:40)
[2020-07-28] MEDS: LEVOFLOXACIN INJ 750 MG in PREMIX 1 EACH IV SCH (12:26)
[2020-07-28] MEDS: POTASSIUM CHLORIDE 20 MEQ/15 ML UDCUP PER TUBE PRN (16:43)
[2020-07-28] MEDS ORDERED: fentaNYL INJ 2,500 MCG in SODIUM CHLORIDE 0.9% 75 ML IV PRN (22:50)
[2020-07-29] MEDS: INSULIN REGULAR 100 UNIT/ML SUBCUT SCH ×4 (00:34→18:36)
[2020-07-29] MEDS: fentaNYL INJ 2,500 MCG in SODIUM CHLORIDE 0.9% 450 ML IV PRN (03:32)
[2020-07-29 04:03] LABS: Basophils # 0.1 10*3/uL (0.0-0.2); Basophils % 0.3 % (0.0-0.8); Eosinophils # 0.2 10*3/uL (0.0-0.87); Eosinophils % 1.4 % (0.00-10.9); Hematocrit 33.5 VOL% (42.0-52.0); Hemoglobin 10.9 GM/DL (14.0-18.0); Immature Granulocytes % 1.6 %; Immature Granulocytes Absolute 0.25 #; Lymphocytes # 1.8 10*3/uL (1.4-4.0); Lymphocytes % 11.8 % (21.2-54.2); Mean Corpuscular HGB Conc 32.5 GM/DL (32-36); Mean Corpuscular Volume 99.4 FL (87-102); Mean Platelet Volume 10.8 FL (9.6-12.0); Monocytes % 6.6 % (1.7-12.7); Neutrophils % 78.3 % (38.7-73.9); Platelet Count 318 T/CUMM (130-400); Red Blood Count 3.37 MC/CUMM (3.8-5.5); Red Cell Distribution Width 15.6 % (9.3-17.3); White Blood Count 15.5 T/CUMM (4-12)
[2020-07-29] MEDS: ALBUTEROL INHALER 18 GM INH SCH ×4 (04:32→20:39)
[2020-07-29 04:58] LABS: Calcium 8.3 MG/DL (8.5-10.1); Osmolality,Calculated 282.7 MOS/KG (273-304); Potassium 4.2 MMOL/L (3.5-5.1)
[2020-07-29 05:09] LABS: ABG Base Excess -1.1 MMOL/L (-2.5-2.5); ABG HCO3 23.5 MMOL/L (20-26); ABG Oxygen Saturation 98.1 % (95-100); ABG PCO2 43.6 MM HG (35-48); ABG PH 7.361 (7.35-7.45); ABG TCO2 20.3 MMOL/L (23-27); Allen Test Positive; Pt O2 Delivery Device Ventilator
[2020-07-29] MEDS: FUROSEMIDE 20 MG/2 ML VIAL IV SCH ×2 (08:44→16:39)
[2020-07-29] MEDS: ZINC GLUCONATE 50 MG TABLET PO SCH (08:47)
[2020-07-29] MEDS: ASCORBIC ACID 500 MG TABLET PO SCH ×2 (08:47→20:38)
[2020-07-29] MEDS: CHOLECALCIFEROL 1,000 UNIT TABLET PO SCH (08:47)
[2020-07-29] MEDS: FAMOTIDINE 20 MG TABLET PO SCH ×2 (08:47→20:38)
[2020-07-29] MEDS: THIAMINE 100 MG TABLET PO SCH (08:47)
[2020-07-29] MEDS: CETIRIZINE 10 MG TABLET PO SCH (08:47)
[2020-07-29] MEDS: FOLIC ACID 1 MG TABLET PO SCH (08:47)
[2020-07-29] MEDS: LEVOTHYROXINE 150 MCG TABLET PO SCH (08:47)
[2020-07-29] MEDS: DESITIN 4OZ/NYSTATIN 15 GRAM MIXTURE PASTE TOP SCH ×2 (08:48→20:38)
[2020-07-29] MEDS: ENOXAPARIN 80 MG/0.8 ML SYRINGE SUBCUT SCH ×2 (08:48→20:38)
[2020-07-29] MEDS: MULTIVITAMIN (CENTRUM) TABLET PO SCH (08:48)
[2020-07-29] MEDS: POLYETHYLENE GLYCOL POWDER 17 GM PACK PO SCH (08:48)
[2020-07-29] MEDS ORDERED: MAGNESIUM SULF RIDER 2 GM in PREMIX 1 EACH IV ONE (09:00)
[2020-07-29] MEDS: MAGNESIUM SULF RIDER 2 GM in PREMIX 1 EACH IV PRN (09:02)
[2020-07-29] MEDS: FLUCONAZOLE INJ 100 MG in IV BAG 1 EACH IV SCH (10:37)
[2020-07-29] MEDS ORDERED: MORPHINE 4 MG/1 ML VIAL IV ONE (12:19)
[2020-07-29] MEDS: LEVOFLOXACIN INJ 750 MG in PREMIX 1 EACH IV SCH (12:55)
[2020-07-29] MEDS: fentaNYL 25 MCG/HR PATCH TRANSDERM SCH (12:56)
[2020-07-30] MEDS: ALBUTEROL INHALER 18 GM INH SCH ×4 (00:32→20:38)
[2020-07-30] MEDS: INSULIN REGULAR 100 UNIT/ML SUBCUT SCH ×4 (00:32→17:48)
[2020-07-30 04:25] LABS: Basophils # 0.1 10*3/uL (0.0-0.2); Basophils % 0.3 % (0.0-0.8); Eosinophils % 0.2 % (0.00-10.9); Hematocrit 36.5 VOL% (42.0-52.0); Hemoglobin 11.6 GM/DL (14.0-18.0); Immature Granulocytes Absolute 0.16 #; Lymphocytes # 1.2 10*3/uL (1.4-4.0); Lymphocytes % 7.1 % (21.2-54.2); Mean Corpuscular HGB Conc 31.8 GM/DL (32-36); Mean Corpuscular Volume 98.1 FL (87-102); Mean Platelet Volume 11.3 FL (9.6-12.0); Monocytes % 3.5 % (1.7-12.7); Neutrophils % 87.9 % (38.7-73.9); Platelet Count 328 T/CUMM (130-400); Red Blood Count 3.72 MC/CUMM (3.8-5.5); White Blood Count 16.7 T/CUMM (4-12)
[2020-07-30 04:43] LABS: Allen Test Positive
[2020-07-30 04:44] LABS: Calcium 8.6 MG/DL (8.5-10.1); Potassium 3.1 MMOL/L (3.5-5.1)
[2020-07-30 04:46] LABS: ABG Base Excess 2.8 MMOL/L (-2.5-2.5); ABG HCO3 26.5 MMOL/L (20-26); ABG Oxygen Saturation 94.6 % (95-100); ABG PCO2 37.5 MM HG (35-48); ABG PH 7.467 (7.35-7.45); ABG PO2 74.4 MM HG (80-95); ABG TCO2 27.6 MMOL/L (23-27)
[2020-07-30] MEDS: MAGNESIUM SULF RIDER 4 GM in PREMIX 1 EACH IV PRN (06:15)
[2020-07-30] MEDS: MAGNESIUM SULF RIDER 2 GM in PREMIX 1 EACH IV PRN (06:15)
[2020-07-30] MEDS: POTASSIUM CHLORIDE 20 MEQ/15 ML UDCUP PER TUBE PRN (06:22)
[2020-07-30] MEDS ORDERED: MAGNESIUM SULF RIDER 2 GM in PREMIX 1 EACH IV ONE (08:59)
[2020-07-30] MEDS: POTASSIUM CHLORIDE 20 MEQ/15 ML UDCUP PO SCH ×3 (09:18→17:47)
[2020-07-30] MEDS: ZINC GLUCONATE 50 MG TABLET PO SCH (09:18)
[2020-07-30] MEDS: THIAMINE 100 MG TABLET PO SCH (09:18)
[2020-07-30] MEDS: ASCORBIC ACID 500 MG TABLET PO SCH ×2 (09:18→20:38)
[2020-07-30] MEDS: ENOXAPARIN 80 MG/0.8 ML SYRINGE SUBCUT SCH ×2 (09:18→20:38)
[2020-07-30] MEDS: FUROSEMIDE 20 MG/2 ML VIAL IV SCH ×2 (09:18→17:00)
[2020-07-30] MEDS: FAMOTIDINE 20 MG TABLET PO SCH ×2 (09:19→20:38)
[2020-07-30] MEDS: MULTIVITAMIN (CENTRUM) TABLET PO SCH (09:19)
[2020-07-30] MEDS: CHOLECALCIFEROL 1,000 UNIT TABLET PO SCH (09:19)
[2020-07-30] MEDS: LEVOTHYROXINE 150 MCG TABLET PO SCH (09:19)
[2020-07-30] MEDS: FOLIC ACID 1 MG TABLET PO SCH (09:19)
[2020-07-30] MEDS: CETIRIZINE 10 MG TABLET PO SCH (09:19)
[2020-07-30] MEDS: DESITIN 4OZ/NYSTATIN 15 GRAM MIXTURE PASTE TOP SCH ×2 (09:20→20:38)
[2020-07-30] MEDS: FLUCONAZOLE INJ 100 MG in IV BAG 1 EACH IV SCH (09:26)
[2020-07-30] MEDS: POLYETHYLENE GLYCOL POWDER 17 GM PACK PO SCH (10:10)
[2020-07-30] MEDS: LEVOFLOXACIN INJ 750 MG in PREMIX 1 EACH IV SCH (13:30)
[2020-07-31 00:19] LABS: Calcium 8.5 MG/DL (8.5-10.1); Osmolality,Calculated 277.8 MOS/KG (273-304); Potassium 3.2 MMOL/L (3.5-5.1)
[2020-07-31] MEDS: INSULIN REGULAR 100 UNIT/ML SUBCUT SCH ×4 (01:12→17:33)
[2020-07-31] MEDS: POTASSIUM CHLORIDE 20 MEQ/15 ML UDCUP PER TUBE PRN ×2 (01:21→09:17)
[2020-07-31] MEDS: MAGNESIUM SULF RIDER 4 GM in PREMIX 1 EACH IV PRN (01:21)
[2020-07-31] MEDS: ALBUTEROL INHALER 18 GM INH SCH ×3 (01:50→20:55)
[2020-07-31 04:30] LABS: Basophils % 0.2 % (0.0-0.8); Eosinophils # 0.1 10*3/uL (0.0-0.87); Eosinophils % 0.7 % (0.00-10.9); Hematocrit 35.9 VOL% (42.0-52.0); Hemoglobin 11.5 GM/DL (14.0-18.0); Immature Granulocytes % 0.7 %; Immature Granulocytes Absolute 0.12 #; Lymphocytes # 1.5 10*3/uL (1.4-4.0); Lymphocytes % 8.1 % (21.2-54.2); Mean Platelet Volume 10.5 FL (9.6-12.0); Monocytes % 4.4 % (1.7-12.7); Neutrophils % 85.9 % (38.7-73.9); Platelet Count 338 T/CUMM (130-400); Red Cell Distribution Width 14.6 % (9.3-17.3); White Blood Count 18.1 T/CUMM (4-12)
[2020-07-31 04:54] LABS: Potassium 3.3 MMOL/L (3.5-5.1)
[2020-07-31 04:56] LABS: Calcium 8.5 MG/DL (8.5-10.1)
[2020-07-31 04:57] LABS: Osmolality,Calculated 283.4 MOS/KG (273-304)
[2020-07-31] MEDS: FUROSEMIDE 20 MG/2 ML VIAL IV SCH (08:00)
[2020-07-31] MEDS: ENOXAPARIN 80 MG/0.8 ML SYRINGE SUBCUT SCH ×2 (08:00→20:51)
[2020-07-31] MEDS: amLODIPine 5 MG TABLET PO SCH (08:01)
[2020-07-31] MEDS: DESITIN 4OZ/NYSTATIN 15 GRAM MIXTURE PASTE TOP SCH ×2 (08:01→20:57)
[2020-07-31] MEDS: FLUCONAZOLE INJ 100 MG in IV BAG 1 EACH IV SCH (08:01)
[2020-07-31] MEDS: MULTIVITAMIN (CENTRUM) TABLET PO SCH (08:47)
[2020-07-31] MEDS: FOLIC ACID 1 MG TABLET PO SCH (08:47)
[2020-07-31] MEDS: FAMOTIDINE 20 MG TABLET PO SCH ×2 (08:47→20:51)
[2020-07-31] MEDS: CETIRIZINE 10 MG TABLET PO SCH (08:48)
[2020-07-31] MEDS: THIAMINE 100 MG TABLET PO SCH (08:48)
[2020-07-31] MEDS: LEVOTHYROXINE 150 MCG TABLET PO SCH (08:48)
[2020-07-31] MEDS: ASCORBIC ACID 500 MG TABLET PO SCH ×2 (08:48→20:51)
[2020-07-31] MEDS: ZINC GLUCONATE 50 MG TABLET PO SCH (08:48)
[2020-07-31] MEDS: CHOLECALCIFEROL 1,000 UNIT TABLET PO SCH (08:48)
[2020-07-31] MEDS: methylPREDNISolone SOD SUC 40 MG/1 ML VIAL IV SCH ×2 (11:23→18:02)
[2020-07-31] MEDS: LEVOFLOXACIN INJ 750 MG in PREMIX 1 EACH IV SCH (11:23)
[2020-07-31 20:51] LABS: CDT Result Negative (Negative); CDT Specimen Source STOOL
[2020-08-01] MEDS: INSULIN REGULAR 100 UNIT/ML SUBCUT SCH ×4 (00:26→17:00)
[2020-08-01] MEDS: methylPREDNISolone SOD SUC 40 MG/1 ML VIAL IV SCH ×3 (02:36→20:50)
[2020-08-01] MEDS: ALBUTEROL INHALER 18 GM INH SCH (02:43)
[2020-08-01 05:33] LABS: Basophils % 0.1 % (0.0-0.8); Hematocrit 37.8 VOL% (42.0-52.0); Hemoglobin 12.2 GM/DL (14.0-18.0); Immature Granulocytes % 0.7 %; Lymphocytes # 0.8 10*3/uL (1.4-4.0); Lymphocytes % 5.5 % (21.2-54.2); Mean Corpuscular HGB Conc 32.3 GM/DL (32-36); Mean Corpuscular Volume 96.4 FL (87-102); Mean Platelet Volume 11.1 FL (9.6-12.0); Monocytes % 4.7 % (1.7-12.7); Platelet Count 298 T/CUMM (130-400); Red Blood Count 3.92 MC/CUMM (3.8-5.5); Red Cell Distribution Width 14.4 % (9.3-17.3); White Blood Count 14.8 T/CUMM (4-12)
[2020-08-01 06:08] LABS: Calcium 8.6 MG/DL (8.5-10.1); Potassium 3.7 MMOL/L (3.5-5.1)
[2020-08-01] MEDS: DESITIN 4OZ/NYSTATIN 15 GRAM MIXTURE PASTE TOP SCH ×2 (08:46→20:52)
[2020-08-01] MEDS: amLODIPine 5 MG TABLET PO SCH (08:49)
[2020-08-01] MEDS: FLUCONAZOLE INJ 100 MG in IV BAG 1 EACH IV SCH (08:49)
[2020-08-01] MEDS: ENOXAPARIN 80 MG/0.8 ML SYRINGE SUBCUT SCH (08:50)
[2020-08-01] MEDS: LEVOTHYROXINE 150 MCG TABLET PO SCH (08:50)
[2020-08-01] MEDS: MULTIVITAMIN (CENTRUM) TABLET PO SCH (09:42)
[2020-08-01] MEDS: FOLIC ACID 1 MG TABLET PO SCH (09:43)
[2020-08-01] MEDS: FAMOTIDINE 20 MG TABLET PO SCH ×2 (09:44→20:50)
[2020-08-01] MEDS: CETIRIZINE 10 MG TABLET PO SCH (09:44)
[2020-08-01] MEDS: ASCORBIC ACID 500 MG TABLET PO SCH ×2 (09:44→20:50)
[2020-08-01] MEDS: THIAMINE 100 MG TABLET PO SCH (09:44)
[2020-08-01] MEDS: CHOLECALCIFEROL 1,000 UNIT TABLET PO SCH (09:44)
[2020-08-01] MEDS: ZINC GLUCONATE 50 MG TABLET PO SCH (09:44)
[2020-08-01] MEDS: fentaNYL 25 MCG/HR PATCH TRANSDERM SCH (09:48)
[2020-08-01] MEDS: LEVOFLOXACIN INJ 750 MG in PREMIX 1 EACH IV SCH (11:21)
[2020-08-01] MEDS: ENOXAPARIN 40 MG/0.4 ML SYRINGE SUBCUT SCH (15:31)
[2020-08-01 16:10] LABS: Bilirubin,Urine Negative (Negative); Blood, Urine Moderate mg/dL (Negative); Glucose,Urine (UA) Negative (Negative); Ketones,Urine Negative (Negative); Mucus,Urine Occasional /LPF (Occasional); Nitrite,Urine Negative (Negative); Protein,Urine 100 MG/DL; RBC,Urine 4241 /HPF (0-4); Urine Appearance Slightly Hazy (Clear); Urine Color Red (Yellow); Urine Specific Gravity 1.017 (1.001-1.035); Urine Urobilinogen < 2.0 EU/DL (0.2-1.0)
[2020-08-01] MEDS: lisinopriL 10 MG TABLET PO SCH (16:17)
[2020-08-02] MEDS: INSULIN REGULAR 100 UNIT/ML SUBCUT SCH ×4 (01:30→18:25)
[2020-08-02] MEDS: methylPREDNISolone SOD SUC 40 MG/1 ML VIAL IV SCH ×3 (04:02→20:59)
[2020-08-02 06:33] LABS: Basophils % 0.2 % (0.0-0.8); Hematocrit 35.9 VOL% (42.0-52.0); Hemoglobin 11.4 GM/DL (14.0-18.0); Immature Granulocytes % 0.6 %; Immature Granulocytes Absolute 0.05 #; Lymphocytes # 1.2 10*3/uL (1.4-4.0); Lymphocytes % 14.9 % (21.2-54.2); Mean Corpuscular HGB Conc 31.8 GM/DL (32-36); Mean Corpuscular Volume 97.3 FL (87-102); Mean Platelet Volume 10.6 FL (9.6-12.0); Monocytes % 11.2 % (1.7-12.7); Neutrophils % 73.1 % (38.7-73.9); Platelet Count 305 T/CUMM (130-400); Red Blood Count 3.69 MC/CUMM (3.8-5.5); Red Cell Distribution Width 14.3 % (9.3-17.3); White Blood Count 8.1 T/CUMM (4-12)
[2020-08-02 06:55] LABS: Calcium 8.6 MG/DL (8.5-10.1); Osmolality,Calculated 281.7 MOS/KG (273-304); Potassium 3.5 MMOL/L (3.5-5.1)
[2020-08-02] MEDS: FLUCONAZOLE INJ 100 MG in IV BAG 1 EACH IV SCH (08:26)
[2020-08-02] MEDS: amLODIPine 5 MG TABLET PO SCH (08:27)
[2020-08-02] MEDS: LEVOTHYROXINE 150 MCG TABLET PO SCH (08:27)
[2020-08-02] MEDS: FOLIC ACID 1 MG TABLET PO SCH (08:28)
[2020-08-02] MEDS: lisinopriL 10 MG TABLET PO SCH (08:28)
[2020-08-02] MEDS: ZINC GLUCONATE 50 MG TABLET PO SCH (08:28)
[2020-08-02] MEDS: CETIRIZINE 10 MG TABLET PO SCH (08:28)
[2020-08-02] MEDS: CHOLECALCIFEROL 1,000 UNIT TABLET PO SCH (08:28)
[2020-08-02] MEDS: FAMOTIDINE 20 MG TABLET PO SCH ×2 (08:28→21:00)
[2020-08-02] MEDS: THIAMINE 100 MG TABLET PO SCH (08:29)
[2020-08-02] MEDS: DESITIN 4OZ/NYSTATIN 15 GRAM MIXTURE PASTE TOP SCH ×2 (08:29→21:04)
[2020-08-02] MEDS: ASCORBIC ACID 500 MG TABLET PO SCH ×2 (08:29→21:00)
[2020-08-02] MEDS: MULTIVITAMIN (CENTRUM) TABLET PO SCH (09:25)
[2020-08-02] MEDS: ALBUTEROL 2.5 MG/3 ML NEB RESP TX SCH ×2 (13:02→19:34)
[2020-08-02] MEDS: ENOXAPARIN 40 MG/0.4 ML SYRINGE SUBCUT SCH (20:59)
[2020-08-03] MEDS: INSULIN REGULAR 100 UNIT/ML SUBCUT SCH ×5 (00:12→23:40)
[2020-08-03] MEDS: ALBUTEROL 2.5 MG/3 ML NEB RESP TX SCH ×4 (00:28→21:01)
[2020-08-03] MEDS: methylPREDNISolone SOD SUC 40 MG/1 ML VIAL IV SCH (05:44)
[2020-08-03 06:15] LABS: Basophils % 0.3 % (0.0-0.8); Eosinophils % 0.1 % (0.00-10.9); Hemoglobin 11.4 GM/DL (14.0-18.0); Immature Granulocytes % 0.4 %; Immature Granulocytes Absolute 0.03 #; Lymphocytes # 1.6 10*3/uL (1.4-4.0); Lymphocytes % 20.8 % (21.2-54.2); Mean Corpuscular HGB Conc 31.7 GM/DL (32-36); Mean Corpuscular Volume 96.3 FL (87-102); Mean Platelet Volume 10.7 FL (9.6-12.0); Monocytes % 6.5 % (1.7-12.7); Neutrophils % 71.9 % (38.7-73.9); Platelet Count 305 T/CUMM (130-400); Red Blood Count 3.74 MC/CUMM (3.8-5.5); Red Cell Distribution Width 14.3 % (9.3-17.3); White Blood Count 7.5 T/CUMM (4-12)
[2020-08-03 06:36] LABS: Calcium 8.7 MG/DL (8.5-10.1); Potassium 3.9 MMOL/L (3.5-5.1)
[2020-08-03 06:38] LABS: Hypochromasia 1+; Lymphocytes 17 % (20-55); Microcytosis 1+; Platelet Estimate Adequate; Segmented Neutrophils 79 % (50-85); Total Cells Counted 100
[2020-08-03] MEDS: POTASSIUM CHLORIDE 20 MEQ/15 ML UDCUP PER TUBE PRN (09:51)
[2020-08-03] MEDS: THIAMINE 100 MG TABLET PO SCH (09:51)
[2020-08-03] MEDS: lisinopriL 10 MG TABLET PO SCH (09:52)
[2020-08-03] MEDS: CETIRIZINE 10 MG TABLET PO SCH (09:52)
[2020-08-03] MEDS: LEVOTHYROXINE 150 MCG TABLET PO SCH (09:52)
[2020-08-03] MEDS: ASCORBIC ACID 500 MG TABLET PO SCH ×2 (09:52→21:48)
[2020-08-03] MEDS: DESITIN 4OZ/NYSTATIN 15 GRAM MIXTURE PASTE TOP SCH ×2 (09:53→21:48)
[2020-08-03] MEDS: amLODIPine 5 MG TABLET PO SCH (09:53)
[2020-08-03] MEDS: FAMOTIDINE 20 MG TABLET PO SCH ×2 (09:53→21:48)
[2020-08-03] MEDS: FOLIC ACID 1 MG TABLET PO SCH (09:53)
[2020-08-03] MEDS: CHOLECALCIFEROL 1,000 UNIT TABLET PO SCH (09:53)
[2020-08-03] MEDS: ZINC GLUCONATE 50 MG TABLET PO SCH (09:53)
[2020-08-03] MEDS: MULTIVITAMIN (CENTRUM) TABLET PO SCH (09:53)
[2020-08-03] MEDS ORDERED: clonazePAM 0.5 MG TABLET PO PRN (15:37)
[2020-08-03] MEDS: ENOXAPARIN 40 MG/0.4 ML SYRINGE SUBCUT SCH (21:48)
[2020-08-04] MEDS: ALBUTEROL 2.5 MG/3 ML NEB RESP TX SCH ×4 (01:31→19:23)
[2020-08-04 04:57] LABS: Basophils # 0.1 10*3/uL (0.0-0.2); Basophils % 0.9 % (0.0-0.8); Eosinophils # 0.1 10*3/uL (0.0-0.87); Eosinophils % 1.4 % (0.00-10.9); Hematocrit 36.9 VOL% (42.0-52.0); Hemoglobin 12.1 GM/DL (14.0-18.0); Immature Granulocytes % 0.1 %; Immature Granulocytes Absolute 0.01 #; Lymphocytes # 2.4 10*3/uL (1.4-4.0); Lymphocytes % 31.3 % (21.2-54.2); Mean Corpuscular HGB Conc 32.8 GM/DL (32-36); Mean Corpuscular Volume 96.3 FL (87-102); Mean Platelet Volume 10.6 FL (9.6-12.0); Monocytes % 6.5 % (1.7-12.7); Neutrophils % 59.8 % (38.7-73.9); Platelet Count 271 T/CUMM (130-400); Red Blood Count 3.83 MC/CUMM (3.8-5.5); Red Cell Distribution Width 14.4 % (9.3-17.3); White Blood Count 7.7 T/CUMM (4-12)
[2020-08-04 05:15] LABS: Osmolality,Calculated 279.7 MOS/KG (273-304); Potassium 3.3 MMOL/L (3.5-5.1)
[2020-08-04 05:18] LABS: Hypochromasia 1+; Microcytosis 1+; Platelet Estimate Adequate
[2020-08-04] MEDS: INSULIN REGULAR 100 UNIT/ML SUBCUT SCH ×3 (05:19→17:58)
[2020-08-04] MEDS: fentaNYL 25 MCG/HR PATCH TRANSDERM SCH (09:31)
[2020-08-04] MEDS: ASCORBIC ACID 500 MG TABLET PO SCH ×2 (09:31→21:37)
[2020-08-04] MEDS: ZINC GLUCONATE 50 MG TABLET PO SCH (09:32)
[2020-08-04] MEDS: amLODIPine 5 MG TABLET PO SCH (09:32)
[2020-08-04] MEDS: CHOLECALCIFEROL 1,000 UNIT TABLET PO SCH (09:32)
[2020-08-04] MEDS: predniSONE 10 MG TABLET PO SCH (09:33)
[2020-08-04] MEDS: THIAMINE 100 MG TABLET PO SCH (09:33)
[2020-08-04] MEDS: LEVOTHYROXINE 150 MCG TABLET PO SCH (09:34)
[2020-08-04] MEDS: FAMOTIDINE 20 MG TABLET PO SCH ×2 (09:35→21:37)
[2020-08-04] MEDS: CETIRIZINE 10 MG TABLET PO SCH (09:36)
[2020-08-04] MEDS: lisinopriL 10 MG TABLET PO SCH (09:36)
[2020-08-04] MEDS: FOLIC ACID 1 MG TABLET PO SCH (09:36)
[2020-08-04] MEDS: DESITIN 4OZ/NYSTATIN 15 GRAM MIXTURE PASTE TOP SCH ×2 (09:37→21:37)
[2020-08-04] MEDS: MULTIVITAMIN (CENTRUM) TABLET PO SCH (09:47)
[2020-08-04 12:22] LABS: Albumin 2.5 G/DL (3.4-5.0); Bilirubin,Direct 0.18 MG/DL (0.0-0.20); Bilirubin,Indirect 0.3 MG/DL (0.0-1.0); Bilirubin,Total 0.5 MG/DL (0.2-1.0); Free T4 (Free Thyroxine) 1.2 NG/DL (0.76-1.46); Total Protein 6.6 G/DL (5.0-7.5)
[2020-08-04] MEDS: POTASSIUM CHLORIDE 20 MEQ/15 ML UDCUP PER TUBE PRN ×2 (15:39→18:46)
[2020-08-04 18:21] LABS: QuantiFERON-Tb Gold Pl Negative (Negative); TB2 Ag Minus Result 0.11 IU/mL
[2020-08-04] MEDS: ENOXAPARIN 40 MG/0.4 ML SYRINGE SUBCUT SCH (21:37)
[2020-08-05] MEDS: INSULIN REGULAR 100 UNIT/ML SUBCUT SCH ×3 (00:10→14:29)
[2020-08-05] MEDS: ALBUTEROL 2.5 MG/3 ML NEB RESP TX SCH ×3 (01:09→14:23)
[2020-08-05 05:18] LABS: Basophils % 0.4 % (0.0-0.8); Eosinophils # 0.2 10*3/uL (0.0-0.87); Eosinophils % 2.1 % (0.00-10.9); Hematocrit 37.9 VOL% (42.0-52.0); Hemoglobin 12.3 GM/DL (14.0-18.0); Immature Granulocytes % 0.4 %; Immature Granulocytes Absolute 0.04 #; Lymphocytes # 2.7 10*3/uL (1.4-4.0); Lymphocytes % 27.4 % (21.2-54.2); Mean Corpuscular HGB Conc 32.5 GM/DL (32-36); Mean Corpuscular Volume 95.9 FL (87-102); Mean Platelet Volume 10.3 FL (9.6-12.0); Monocytes % 5.5 % (1.7-12.7); Neutrophils % 64.2 % (38.7-73.9); Platelet Count 287 T/CUMM (130-400); Red Blood Count 3.95 MC/CUMM (3.8-5.5); Red Cell Distribution Width 13.9 % (9.3-17.3); White Blood Count 9.8 T/CUMM (4-12)
[2020-08-05 05:40] LABS: Eosinophils 3 % (0-10); Hypochromasia 1+; Lymphocytes 30 % (20-55); Microcytosis 1+; Platelet Estimate Adequate; Segmented Neutrophils 64 % (50-85); Total Cells Counted 100
[2020-08-05 05:57] LABS: Calcium 8.9 MG/DL (8.5-10.1); Osmolality,Calculated 280.5 MOS/KG (273-304); Potassium 3.8 MMOL/L (3.5-5.1)
[2020-08-05] MEDS: MAGNESIUM SULF RIDER 2 GM in PREMIX 1 EACH IV PRN (09:14)
[2020-08-05] MEDS: MULTIVITAMIN (CENTRUM) TABLET PO SCH (09:16)
[2020-08-05] MEDS: ZINC GLUCONATE 50 MG TABLET PO SCH (09:16)
[2020-08-05] MEDS: amLODIPine 5 MG TABLET PO SCH (09:16)
[2020-08-05] MEDS: ASCORBIC ACID 500 MG TABLET PO SCH (09:16)
[2020-08-05] MEDS: LEVOTHYROXINE 150 MCG TABLET PO SCH (09:16)
[2020-08-05] MEDS: CHOLECALCIFEROL 1,000 UNIT TABLET PO SCH (09:16)
[2020-08-05] MEDS: lisinopriL 10 MG TABLET PO SCH (09:17)
[2020-08-05] MEDS: FAMOTIDINE 20 MG TABLET PO SCH (09:17)
[2020-08-05] MEDS: predniSONE 10 MG TABLET PO SCH (09:17)
[2020-08-05] MEDS: THIAMINE 100 MG TABLET PO SCH (09:17)
[2020-08-05] MEDS: CETIRIZINE 10 MG TABLET PO SCH (09:26)
[2020-08-05] MEDS: DESITIN 4OZ/NYSTATIN 15 GRAM MIXTURE PASTE TOP SCH (09:26)
[2020-08-05] MEDS: FOLIC ACID 1 MG TABLET PO SCH (09:26)
[2020-08-05 15:18] VITALS: BP 123/79
== END 2020-08-05 16:38 | DRG 207 ==
LOC: EDBD → EDUNIT# → N.ED 18:52 → SUATTDRO 21:17 → N.2E 21:17 → N.CC 07-19 12:44 → N.5E 07-31 09:55
PROVIDERS: ADMIT Internal Medicine; ATTEND Internal Medicine